=== PATIENT | female | born 1990 | race Hispanic/Latino ===

== ENCOUNTER 2018-03-18 03:16 | Emergency (ER) | payer SELFPAY ==
[2018-03-18 03:27] VITALS: BP 118/72
[2018-03-18] MEDS ORDERED: MOTRIN PO ONE (03:28)
[2018-03-18] MEDS ORDERED: MOTRIN ONE (03:29)
--- NOTE | 2018-03-18 03:57 | XRay Report ---
FINAL REPORT EXAM: XR HAND 3+V RT HISTORY: Right hand swelling and pain post trauma/punched wall TECHNIQUE: Three views of the right hand were obtained. FINDINGS: There is no evidence of fracture or dislocation. There is very mild soft tissue swelling overlying the distal end of the 5th metacarpal dorsally. The wrist joint appears intact. IMPRESSION: Very mild soft swelling overlying the dorsal aspect of the distal end of the 5th metacarpal. No evidence of fracture or dislocation.
== END 2018-03-18 05:04 | disposition left against medical advice (07) ==
LOC: ED 03:16
DX: M79.641 Pain in right hand (principal); Z53.21 Procedure and treatment not carried out due to patient leaving prior to being seen by health care provider